=== PATIENT | female | born 1990 | race Caucasian/White ===

== ENCOUNTER 2017-06-28 09:14 | Inpatient (IN) | payer MEDICAID ==
[~2017-06-28 09:14] MED LIST: OXYTOCIN 30 UNITS/LR 500 ML BAG IV
[2017-06-28] MEDS ORDERED: CARBOPROST 250 MCG INJ IM ×2 (09:30→17:00)
[2017-06-28] MEDS ORDERED: METHYLERGONOVINE 0.2 MG INJ IM ×2 (09:30→17:00)
[2017-06-28] MEDS ORDERED: OXYTOCIN 30 UNITS/LR 500 ML IV ×2 (09:30→17:00)
[2017-06-28] MEDS ORDERED: MISOPROSTOL 200 MCG TAB PR ×2 (09:30→17:00)
[2017-06-28] MEDS: LACTATED RINGER'S 1,000 ML IV ×2 (10:24→11:13)
[2017-06-28 10:32] LABS: ADD MAN DIFF? NO
[2017-06-28 10:39] LABS: BASOPHILS % 0.3 % (0.0-2.0); EOSINOPHILS # 0.1 10^3/ul (0.0-0.5); EOSINOPHILS % 0.9 % (0.0-7.0); HEMATOCRIT 32.2 % (37.0-47.0); HEMOGLOBIN 10.9 g/dl (12.0-16.0); LYMPHOCYTES # 2.2 10^3/ul (0.8-2.9); LYMPHOCYTES % 21.6 % (15.0-51.0); MEAN CORPUSCULAR HEMOGLOBIN 25.7 pg (29.0-33.0); MEAN CORPUSCULAR HGB CONC 33.9 g/dl (32.0-37.0); MEAN CORPUSCULAR VOLUME 75.9 fl (82.0-101.0); MONOCYTE # 0.5 10^3/ul (0.3-0.9); MONOCYTES % 5.3 % (0.0-11.0); NEUTROPHIL # 7.3 10^3/ul (1.6-7.5); PLATELET COUNT 220 10^3/UL (140-415); RED BLOOD COUNT 4.24 10^6/ul (4.20-5.40); RED CELL DISTRIBUTION WIDTH 14.2 % (11.5-14.5)
[2017-06-28 10:39] LABS: WHITE BLOOD COUNT 10.2 10^3/ul (4.8-10.8)
[2017-06-28 11:06] LABS: INR 0.92; PROTIME 12.4 Sec (11.9-14.9)
[2017-06-28 11:07] LABS: PARTIAL THROMBOPLASTIN TIME 24.6 Sec (25.0-35.0)
[2017-06-28] MEDS ORDERED: morphine SULFATE/PF (10 MG/10 ML) INJ (12:59)
[2017-06-28] MEDS ORDERED: ONDANSETRON 4 MG INJ (12:59)
[2017-06-28] MEDS ORDERED: OXYTOCIN 10 UNIT INJ (12:59)
[2017-06-28] MEDS ORDERED: PHENYLephrine (100 MCG/ML) 5ML SYG (13:00)
[2017-06-28] MEDS ORDERED: PHENYLephrine 10 MG INJ (13:21)
[2017-06-28] MEDS ORDERED: morphine 2 MG INJ IV (15:00)
[2017-06-28] MEDS ORDERED: ONDANSETRON 4 MG INJ IV (15:00)
[2017-06-28] MEDS ORDERED: NALOXONE (0.4 MG/ML) INJ IV (15:00)
[2017-06-28] MEDS: OXYTOCIN 30 UNITS/LR 500 ML IV ×4 (15:08→20:15)
[2017-06-28] MEDS: CEFAZOLIN 2 GM/50 ML (PMX) 50 ML IV (15:11)
[2017-06-28] MEDS: DIPHENHYDRAMINE 50 MG INJ IV (15:33)
[2017-06-28] MEDS: KETOROLAC 30 MG INJ IV ×2 (16:06→23:50)
[2017-06-28 16:47] LABS: RAPID PLASMA REAGIN NONREACTIVE (NR)
[2017-06-28] MEDS: CEFAZOLIN 1 GM/50 ML (PMX) 50 ML IVPB (21:43)
[2017-06-29] MEDS: OXYTOCIN 30 UNITS/LR 500 ML IV ×2 (00:57→04:57)
[2017-06-29] MEDS: LACTATED RINGER'S 1,000 ML IV ×2 (01:53→09:45)
[2017-06-29] MEDS: LANOLIN 7 GM TUBE TOP (05:57)
[2017-06-29] MEDS: KETOROLAC 30 MG INJ IV (05:57)
[2017-06-29 08:26] LABS: ADD MAN DIFF? NO
[2017-06-29 08:38] LABS: BASOPHILS % 0.2 % (0.0-2.0); EOSINOPHILS # 0.1 10^3/ul (0.0-0.5); EOSINOPHILS % 0.8 % (0.0-7.0); HEMATOCRIT 28.3 % (37.0-47.0); HEMOGLOBIN 9.4 g/dl (12.0-16.0); LYMPHOCYTES # 1.9 10^3/ul (0.8-2.9); LYMPHOCYTES % 21.7 % (15.0-51.0); MEAN CORPUSCULAR HEMOGLOBIN 25.7 pg (29.0-33.0); MEAN CORPUSCULAR HGB CONC 33.2 g/dl (32.0-37.0); MEAN CORPUSCULAR VOLUME 77.3 fl (82.0-101.0); MEAN PLATELET VOLUME 11.4 fl (7.4-10.4); MONOCYTE # 0.5 10^3/ul (0.3-0.9); MONOCYTES % 5.4 % (0.0-11.0); NEUTROPHIL # 6.2 10^3/ul (1.6-7.5); NEUTROPHILS % 71.6 % (39.0-77.0); PLATELET COUNT 196 10^3/UL (140-415); RED BLOOD COUNT 3.66 10^6/ul (4.20-5.40); RED CELL DISTRIBUTION WIDTH 14.6 % (11.5-14.5)
[2017-06-29 08:38] LABS: WHITE BLOOD COUNT 8.7 10^3/ul (4.8-10.8)
[2017-06-29] MEDS: SENNA/DOCUSATE NA (8.6MG/50MG) TAB PO ×2 (08:59→21:37)
[2017-06-29] MEDS: INFLUENZA VIRUS VACCINE 0.5 ML (DISPENSING) IM* (09:00)
[2017-06-29] MEDS ORDERED: HYDROCODONE/APAP (5/325) TAB PO ×2 (12:50)
[2017-06-29] MEDS ORDERED: OXYCODONE/ACETAMINOPHEN (5/325) TAB PO (12:50)
[2017-06-29] MEDS: OXYCODONE/ACETAMINOPHEN (5/325) TAB PO ×2 (13:18→17:24)
[2017-06-29] MEDS: IBUPROFEN 600 MG TAB PO ×3 (14:12→23:45)
[2017-06-30] MEDS: IBUPROFEN 600 MG TAB PO ×4 (06:03→23:34)
[2017-06-30] MEDS: SENNA/DOCUSATE NA (8.6MG/50MG) TAB PO ×2 (09:45→20:33)
[2017-06-30] MEDS: OXYCODONE/ACETAMINOPHEN (5/325) TAB PO ×2 (11:47→17:28)
[2017-07-01] MEDS: IBUPROFEN 600 MG TAB PO ×2 (05:53→11:59)
[2017-07-01] MEDS: SENNA/DOCUSATE NA (8.6MG/50MG) TAB PO (09:46)
[2017-07-01] MEDS: DIPHTH/TET/ACEL PERTUSS (ADULT) 0.5 ML VIAL IM* (11:11)
== END 2017-07-01 16:55 | disposition home or self-care (01) | DRG 766 ==
LOC: L-D 09:14 → PP1 16:58
PROVIDERS: Obstetrics & Gynecology
PROC: 10D00Z1 Extraction of Products of Conception, Low, Open Approach (ICD-10-PCS; principal; 2017-06-28 12:30)
DX: O34.211 Maternal care for low transverse scar from previous cesarean delivery (principal); Z37.0 Single live birth; Z3A.39 39 weeks gestation of pregnancy
CPT/HCPCS: 85025; 85610; 85730; 86592; 86850; 86900; 86901; 90686; 99464